=== PATIENT | male | born 1990 | race African-American/Black ===

== ENCOUNTER 2020-07-07 15:38 | Emergency (ER) | payer SELFPAY ==
[~2020-07-07] VITALS: Ht 172.7 cm; Wt 72.6 kg
[2020-07-07] MEDS ORDERED: TETANUS/DIPHTHERIA TOX ADULT 0.5 ML SYR ONE (16:15)
[2020-07-07] MEDS ORDERED: LIDOCAINE HCL 1% LOCAL INJ 20 ML VIAL ONE (16:15)
[2020-07-07] MEDS ORDERED: TETANUS/DIPHTHERIA TOX ADULT 0.5 ML SYR IM NR (16:30)
== END 2020-07-07 17:13 | disposition home or self-care (01) ==
LOC: ER 16:20
DX: S61.411A Laceration without foreign body of right hand, initial encounter (principal); W45.8XXA Other foreign body or object entering through skin, initial encounter; Y99.0 Civilian activity done for income or pay; Z87.19 Personal history of other diseases of the digestive system
CPT/HCPCS: 12002; 90471; 90714; 99283; J2001

== ENCOUNTER 2020-07-14 14:27 | Emergency (ER) | payer SELFPAY ==
[~2020-07-14] VITALS: Ht 172.7 cm; Wt 72.6 kg
== END 2020-07-14 14:57 | disposition home or self-care (01) ==
LOC: ER 14:57
DX: Z48.02 Encounter for removal of sutures (principal)
CPT/HCPCS: 99282

== ENCOUNTER 2021-08-01 17:41 | Emergency (ER) | payer SELFPAY ==
[~2021-08-01] VITALS: Ht 172.7 cm; Wt 74.8 kg
[2021-08-01] MEDS ORDERED: IBUPROFEN 600 MG TAB PO STA (18:01)
== END 2021-08-01 20:58 | disposition home or self-care (01) ==
LOC: ER 17:45
DX: M25.562 Pain in left knee (principal); F17.200 Nicotine dependence, unspecified, uncomplicated
CPT/HCPCS: 99283